=== PATIENT | female | born 1965 | race Caucasian/White ===

== ENCOUNTER 2019-01-31 13:51 | Emergency (ER) | payer OTHER ==
[~2019-01-31] VITALS: Ht 160 cm; Wt 97.1 kg
[2019-01-31 14:12] VITALS: Ht 160 cm; Wt 97.1 kg
[2019-01-31 16:07] VITALS: BP 143/86
== END 2019-01-31 16:07 | disposition home or self-care (01) ==
LOC: ED 13:51
DX: L02.414 Cutaneous abscess of left upper limb (principal); L03.114 Cellulitis of left upper limb
CPT/HCPCS: J2001

== ENCOUNTER 2019-02-02 10:41 | Emergency (ER) | payer OTHER ==
[~2019-02-02] VITALS: Ht 160 cm; Wt 98.0 kg
[2019-02-02 10:43] VITALS: Ht 160 cm; Wt 98.0 kg
[2019-02-02 11:38] VITALS: BP 141/75
== END 2019-02-02 11:39 | disposition home or self-care (01) ==
LOC: ED 10:41
DX: L72.0 Epidermal cyst (principal)

== ENCOUNTER 2019-03-03 13:26 | Emergency (ER) | payer OTHER ==
[~2019-03-03] VITALS: Ht 160 cm; Wt 97.5 kg
[2019-03-03 13:41] VITALS: Ht 160 cm; Wt 97.5 kg
[2019-03-03 15:27] VITALS: BP 147/94
== END 2019-03-03 15:27 | disposition home or self-care (01) ==
LOC: ED 13:26
DX: L72.3 Sebaceous cyst (principal)